=== PATIENT | male | born 1990 | race Caucasian/White ===

== ENCOUNTER 2021-02-17 19:04 | Emergency (ER) | payer BC, OTHER ==
[2021-02-17 19:16] VITALS: PULSE 114; RESP 20; TEMP 98
--- NOTE | 2021-02-17 20:43 | ED ---
Allergic Reaction HPI - General Chief complaint: Allergic Reaction Stated complaint: allergic reaction Time Seen by Provider: 02/17/21 20:25 Source: family, RN notes reviewed, Caregiver Mode of arrival: ambulatory Limitations: no limitations - History of Present Illness Initial Comments: A she is a 30-year-old autistic male that presents to emergency room with mother stating ALLERGIC reaction to a plant or possible bar soap. Mom notes that someone was at her daughter's house when he got into several things and is unsure of what caused the reaction. Mother noted that patient is not struggling to breathe and is not having any issues is acting appropriately. Mom notes it went to urgent care to get a Solu-Medrol and Benadryl shot. Mom notes the patient bottom lip is mildly swollen but is improving. Mom denied any other issues or complaints. - Related Data Allergies Allergy/AdvReac Type Severity Reaction Status Date / Time No Known Allergies Allergy Verified 02/17/21 19:17 Review of Systems ROS Statement: Those systems with pertinent positive or pertinent negative responses have been documented in the HPI. ROS Other: All systems not noted in ROS Statement are negative. Past Medical History Past Medical History: Diabetes Mellitus Additional Past Medical History / Comment(s): autistic History of Any Multi-Drug Resistant Organisms: None Reported Past Surgical History: No Surgical Hx Reported Smoking Status: Never smoker Past Alcohol Use History: None Reported Past Drug Use History: None Reported General Exam Limitations: no limitations General appearance: alert, in no apparent distress Head exam: Present: atraumatic, normocephalic, normal inspection Eye exam: Present: normal appearance, PERRL, EOMI. Absent: scleral icterus, conjunctival injection, periorbital swelling ENT exam: Present: normal exam, mucous membranes moist Neck exam: Present: normal inspection Respiratory exam: Present: normal lung sounds bilaterally. Absent: respiratory distress, wheezes, rales, rhonchi, stridor Cardiovascular Exam: Present: regular rate, normal rhythm, normal heart sounds. Absent: systolic murmur, diastolic murmur, rubs, gallop, clicks Extremities exam: Present: normal inspection, full ROM, normal capillary refill. Absent: tenderness, pedal edema, joint swelling, calf tenderness Neurological exam: Present: alert, oriented X3 Psychiatric exam: Present: normal affect, normal mood, other (Left bottom lip minimally swollen,) Course Vital Signs 02/17/21 19:08 Temperature 98.0 F Pulse Rate 114 H Respiratory 20 Rate O2 Sat by Pulse 97 Oximetry Medical Decision Making - Medical Decision Making 30-year-old male with a mild ALLERGIC reaction to left lower lip. Patient received Solu-Medrol and Benadryl at urgent care. On physical exam patient is in no respiratory distress having no difficulty breathing. Mom notes the patient is acting appropriately. Mom is agreeable discharge home with continuing Benadryl and monitoring at home. Case discussed with Dr. Leon, patient can discharge home. Disposition Clinical Impression: Allergic reaction Disposition: HOME SELF-CARE Condition: Stable Instructions (If sedation given, give patient instructions): General Allergic Reaction (ED) Additional Instructions: Please return to the Emergency Department if symptoms worsen or any other concerns. Follow-up with primary care 1-2 days. Take Benadryl as directed on the package. Is patient prescribed a controlled substance at d/c from ED?: No Referrals: Nonstaff,Physician [Primary Care Provider] - 1-2 days Time of Disposition: 20:43
[2021-02-17 20:59] LABS: Glucose,Whole Blood 241 mg/dL (75-99)
== END 2021-02-17 21:00 | disposition home or self-care (01) ==
LOC: EEVIPCON 19:04 → EC 19:04
DX: T78.40XA Allergy, unspecified, initial encounter (principal); R22.0 Localized swelling, mass and lump, head; F84.0 Autistic disorder; E11.9 Type 2 diabetes mellitus without complications
CPT/HCPCS: 36415; 99283